=== PATIENT | female | born 1975 | race Caucasian/White ===

== ENCOUNTER 2019-07-07 14:28 | Outpatient (CLI) | payer BC, SELFPAY ==
--- NOTE | ~2019-07-07 | MM_ITS ---
EXAMINATION: MM screening [facility] BI w jory HISTORY: Screening mammogram TECHNIQUE: Craniocaudal and mediolateral oblique 3-D tomosynthesis images were obtained and synthetic 2-D images were generated. CAD analysis was submitted and interpreted. COMPARISON: 06/30/2018, 06/25/2017 BREAST PARENCHYMAL COMPOSITION: The breasts are extremely dense, which lowers the sensitivity of mamm ography. FINDINGS: There is no evidence of suspicious mass, calcification, or architectural distortion to sugg est malignancy in either breast. There has been no suspicious interval change. IMPRESSION: 1. No mammographic evidence of malignancy. 2. Recommend routine screening mammography in one year. BI-RADS Category 1: Negative Reviewed, dictated and finalized at location A.
== END 2019-07-07 14:29 | disposition home or self-care (01) ==
LOC: ANHIMG 14:32
PROVIDERS: PCP Family Medicine; Visit Provider Obstetrics & Gynecology
DX: Z12.31 Encounter for screening mammogram for malignant neoplasm of breast (principal)
CPT/HCPCS: 77063; 77067

== ENCOUNTER 2020-07-13 15:55 | Outpatient (CLI) | payer BC, SELFPAY ==
--- NOTE | ~2020-07-13 | MM_ITS ---
EXAMINATION: MM screening [facility] BI w jory HISTORY: Screening TECHNIQUE: Craniocaudal and mediolateral oblique 3-D tomosynthesis images were obtained and synthetic 2-D images were generated. CAD analysis was submitted and interpreted. COMPARISON: Comparison to multiple prior studies sequentially, with oldest reviewed study dated 06/25. BREAST PARENCHYMAL COMPOSITION: The breasts are extremely dense, which lowers the sensitivity of mamm ography. FINDINGS: There is no evidence of suspicious mass, calcification, or architectural distortion to sugg est malignancy in either breast. There has been no suspicious interval change. IMPRESSION: 1. No mammographic evidence of malignancy. 2. Recommend routine screening mammography in one year. BI-RADS Category 1: Negative Reviewed, dictated and finalized at location A.
== END 2020-07-13 15:56 | disposition home or self-care (01) ==
LOC: ANHIMG 15:58
PROVIDERS: PCP Family Medicine; Visit Provider Obstetrics & Gynecology
DX: Z12.31 Encounter for screening mammogram for malignant neoplasm of breast (principal)
CPT/HCPCS: 77063; 77067

== ENCOUNTER 2021-08-08 14:23 | Outpatient (CLI) | payer BC, SELFPAY ==
--- NOTE | ~2021-08-08 | MM_ITS ---
EXAMINATION: MM screening [facility] BI w jory HISTORY: Screening mammogram TECHNIQUE: Craniocaudal and mediolateral oblique 3-D tomosynthesis images were obtained and synthetic 2-D images were generated. CAD analysis was submitted and interpreted. COMPARISON: 07/13/2020, 07/04/2019, 06/2018 bilateral screening mammogram examinations BREAST PARENCHYMAL COMPOSITION: The breasts are extremely dense, which lowers the sensitivity of mamm ography. FINDINGS: There is no evidence of suspicious mass, calcification, or architectural distortion to sugg est malignancy in either breast. There has been no suspicious interval change. IMPRESSION: 1. No mammographic evidence of malignancy. 2. Recommend routine screening mammography in one year. BI-RADS Category 1: Negative Reviewed, dictated and finalized at location A.
== END 2021-08-08 14:24 | disposition home or self-care (01) ==
LOC: ANHIMG 14:24
PROVIDERS: PCP Family Medicine; Visit Provider Obstetrics & Gynecology
DX: Z12.31 Encounter for screening mammogram for malignant neoplasm of breast (principal)
CPT/HCPCS: 77063; 77067

== ENCOUNTER 2022-07-13 14:49 | Emergency (ER) | payer BC, SELFPAY ==
--- NOTE | ~2022-07-13 | XR_ITS ---
XR foot LT min 3V 07/13/2022 15:11 Indication: Left foot pain after trauma. Procedure: 4 views left foot Comparison: No prior studies for comparison. Findings: There are surgical changes consistent with hallux valgus repair. There is a nondisplaced ob lique fracture of the third proximal phalanx which is extra-articular. Osteopenia. Small degenerative calcaneal enthesophyte. Lisfranc joint is intact. Impression: 1: Nondisplaced extra-articular fracture left third proximal phalanx. Reviewed, dictated and finalized at location A. Impression: 1: Nondisplaced extra-articular fracture left third proximal phalanx.
--- NOTE | 2022-07-13 14:51 | ED.LOWEXIN ---
HPI - Extremity Injury (Lower) General Chief Complaint: Extremity Injury, Lower Stated Complaint: injury to left foot Time Seen by Provider: 07/13/22 14:57 Source: patient, RN notes reviewed and old records reviewed Mode of arrival: ambulatory Limitations: no limitations History of Present Illness HPI Narrative: 47-year-old female presents to the [facility] with pain, bruising over metatarsals to 3 and 4 distal aspect left foot. Patient states that on Saturday, 3 days ago her and her son were both lifting there feet at the same time and her son bumped her foot. Positive pedal pulse. Able to move toes. Sensation intact in all 5 toes. Capillary refill under 2 seconds Onset (ago): day(s) (3) Related Data Home Medications Medication Instructions Recorded Confirmed No Home Medications 07/13/22 07/13/22 Allergies Allergy/AdvReac Type Severity Reaction Status Date / Time Penicillins Allergy Severe Swelling Verified 07/13/22 15:00 of Lip/Tongue/Throat Review of Systems Review of Systems: All systems reviewed & are unremarkable except as noted in HPI and below Constitutional: Constitutional: Reports no additional constitutional complaints Eyes: Eyes: Reports no additional eye complaints ENT: Reports system reviewed and no additional complaints, except as documented Cardiovascular: Cardiovascular: Reports no additional cardiovascular complaints, Denies chest pain and Denies dyspnea Respiratory: Respiratory: Reports no additional respiratory complaints, Denies chest congestion, Denies cough and Denies dyspnea Gastrointestinal: Gastrointestinal: Reports no additional gastrointestinal complaints, Denies abdominal pain, Denies nausea and Denies vomiting Musculoskeletal: Musculoskeletal: Reports as per HPI Integumentary/Breasts: Skin/Breast: Reports system reviewed and no additional complaints, except as docu Neurologic: Reports system reviewed and no additional complaints, except as documented Psychiatric: Psychiatric: Reports no additional psychiatric complaints Allergic/Immunologic: Allergic/Immunologic: Reports no additional allergic/immunologic complaints [facility] Past Medical History Medical History Abnormal bone density screening (03/29/17) osteopenia Abnormal Pap smear of cervix ascus 06/15/2016 wnl + hpv/ 06/18/2017 +hpv; 06/24/2018 Ascus +hpv; 07/12/2020 LGSIL + hpv Anxiety Depression Encounter for IUD insertion 07/30/16 Mirena removal/reinsertion 08/2011 Mirena insertion Encounter for IUD removal 07/30/16 Mirena removal/reinsertion 03/03/18 Mirena removal HPV in female Surgical History Surgical History History of bilateral salpingectomy (08/04/10) hscope d&c/endometrial ablation/lscope bilateral salpingectomy History of bunionectomy (04/05/17) History of 10/10/1996 12/10/2005 12/07/2010 History of colposcopy with cervical biopsy 02/18/13 benign 06/27/18 LGSIL MOE I; ECC-benign History of dilation and curettage (08/04/10) hscope d&c/endometrial ablation/lscope bilateral salpingectomy History of endometrial ablation (08/04/10) hscope d&c/endometrial ablation/lscope bilateral salpingectomy Family History Family History Father Hypertension Family history of elevated blood lipids Heart disease Mother Hypertension Depression Family history of elevated blood lipids Sibling Asthma Grandparent Hypertension maternal grandfather paternal grandfather Diabetes mellitus paternal grandfather Other Cerebrovascular accident Family history of alcoholism Family history of cardiovascular disease Family history of malignant neoplasm Social History Social History Smoking status: Never smoker Alcohol intake: never Sub
[2022-07-13 14:57] VITALS: BP 113/67; PULSE 64; RESP 18; TEMP 35.9; O2SAT 99
== END 2022-07-13 15:35 | disposition home or self-care (01) ==
PROVIDERS: Emergency Provider Nurse Practitioner; PCP Family Medicine
DX: S92.525A Nondisplaced fracture of middle phalanx of left lesser toe(s), initial encounter for closed fracture (principal); W50.0XXA Accidental hit or strike by another person, initial encounter
CPT/HCPCS: 73630; 99214; G0463

== ENCOUNTER 2022-12-03 15:20 | Outpatient (CLI) | payer BC, SELFPAY ==
--- NOTE | ~2022-12-03 | MM_ITS ---
EXAMINATION: MM screening [facility] BI w jory HISTORY: Screening mammogram TECHNIQUE: Craniocaudal and mediolateral oblique 3-D tomosynthesis images were obtained and synthetic 2-D images were generated. CAD analysis was submitted and interpreted. COMPARISON: 08/08/2021, 07/13/2020, 07/07/2019 BREAST PARENCHYMAL COMPOSITION: The breasts are extremely dense, which lowers the sensitivity of mamm ography. FINDINGS: No suspicious mass, calcification, or architectural distortion are identified in either jozef ast to suggest malignancy. There has been no suspicious interval change. IMPRESSION: 1. No mammographic evidence of malignancy. 2. Recommend routine screening mammography in one year. BI-RADS Category 1: Negative Reviewed, dictated and finalized at location A.
== END 2022-12-03 15:21 | disposition home or self-care (01) ==
LOC: ANHIMG 15:45
PROVIDERS: PCP Family Medicine; Visit Provider Obstetrics & Gynecology
DX: Z12.31 Encounter for screening mammogram for malignant neoplasm of breast (principal)
CPT/HCPCS: 77063; 77067

== ENCOUNTER 2023-07-14 18:11 | Emergency (ER) | payer BC, SELFPAY ==
--- NOTE | ~2023-07-14 | XR_ITS ---
EXAMINATION: XR chest 2V Exam Date/Time: 07/14/2023 18:38 CDT HISTORY: chest pain Comparison: 09/29/2009. RESULT: Lines, tubes, and devices: None. Lungs and pleura: Clear. Cardiomediastinal silhouette: Stable. Other: No acute osseous or upper abdominal finding. IMPRESSION: No acute cardiopulmonary process. Reviewed, dictated and finalized at location K.
--- NOTE | ~2023-07-14 | CT_ITS ---
EXAMINATION: CTA chest PE protocol DATE: 07/14/2023 19:31 INDICATION: pe TECHNIQUE: Computed tomography angiography (CTA) of the chest was performed with 100 mL Omnipaque-350 intravenous contrast timed to evaluate the pulmonary arteries. Coronal maximum intensity projection 3D-reconstructions were created by the technologist. The dose-length product (DLP) was 162.85 mGy-cm. Automated exposure control and iterative reconstruction technique were employed. COMPARISON: X-ray chest, same date. FINDINGS: Lung parenchyma and airways: Clear. Pleura: Unremarkable. Thoracic inlet, axillae and chest wall: 1 cm left thyroid nodule, which requires no additional evalua tion at this time. Thoracic aorta: No significant dilation. No dissection. Mediastinum: Normal. Heart and pericardium: Normal. Coronary artery calcifications: Absent. Upper abdomen: No significant finding. Bones: No acute osseous finding. Pulmonary arteries: Study quality: Adequate. No pulmonary emboli detected. IMPRESSION: No CT evidence of acute pulmonary embolus. No acute process detected in the chest. Reviewed, dictated and finalized at location K.
--- NOTE | 2023-07-14 18:12 | ECG_ITS ---
Measurements Intervals Kimball Rate: 75 P: 52 MD: 126 QRS: -2 QRSD: 93 T: 27 QT: 368 QTc: 413 Interpretive Statements SINUS RHYTHM NORMAL ECG NO PREVIOUS ECG AVAILABLE FOR COMPARISON Electronically Signed On 07-14-2023 19:32:40 CDT by Cosme King D.O.
--- NOTE | 2023-07-14 18:14 | ED.CHESTPAIN ---
HPI - Chest Pain General Chief Complaint: Chest Pain Stated Complaint: Sick for 1 week, New Chest pain Time Seen by Provider: 07/14/23 18:14 History of Present Illness HPI narrative: Patient is a 48 year old female with history of paroxysmal SVT, here with chest pain and flu like symptoms. Patient notes that she first developed a sore throat and general malaise and hot flashes. She has progressed throughout the week to also develop nasal congestion and a cough. She has experienced left sided chest pain for about 3 days, it was initially intermittent, became constant about 3 hours ago. The chest pain is non radiating, no associated diaphoresis or nausea. No history of CAD, no cardiac risk factors. Chest pain is not worsened with coughing or deep breaths. No calf pain. No history of PE or DVT. She has also had multiple episodes of diarrhea today. Related Data Allergies Allergy/AdvReac Type Severity Reaction Status Date / Time Penicillins Allergy Severe Swelling Verified 07/14/23 18:27 of Lip/Tongue/Throat Review of Systems Review of Systems: All systems reviewed & are unremarkable except as noted in HPI and below PMFSH Past Medical History Medical History Abnormal bone density screening (03/29/17) osteopenia Abnormal Pap smear of cervix ascus 06/15/2016 wnl + hpv/ 06/18/2017 +hpv; 06/24/2018 Ascus +hpv; 07/12/2020 LGSIL + hpv Anxiety Depression Encounter for IUD insertion 07/30/16 Mirena removal/reinsertion 08/2011 Mirena insertion Encounter for IUD removal 07/30/16 Mirena removal/reinsertion 03/03/18 Mirena removal HPV in female Screening mammogram, encounter for Surgical History Surgical History History of bilateral salpingectomy (08/04/10) hscope d&c/endometrial ablation/lscope bilateral salpingectomy History of bunionectomy (04/05/17) History of 10/10/1996 12/10/2005 12/07/2010 History of colposcopy with cervical biopsy 02/18/13 benign 06/27/18 LGSIL MEO I; ECC-benign History of dilation and curettage (08/04/10) hscope d&c/endometrial ablation/lscope bilateral salpingectomy History of endometrial ablation (08/04/10) hscope d&c/endometrial ablation/lscope bilateral salpingectomy Family History Family History Father Hypertension Family history of elevated blood lipids Heart disease Mother Hypertension Depression Family history of elevated blood lipids Sibling Asthma Grandparent Hypertension maternal grandfather paternal grandfather Diabetes mellitus paternal grandfather Other Cerebrovascular accident Family history of alcoholism Family history of cardiovascular disease Family history of malignant neoplasm Social History Social History (Updated 04/09/23 @ 15:41 by GIL Interiano) Smoking status: Never smoker Second hand tobacco smoke exposure: No Alcohol intake: never Substance use: never Substance use type: does not use Lack of Transportation: No Lack of Food: Never True Current Housing: I Have Housing Concerned About Future Housing: No Difficulty Paying Gas/Electric Bills: No Difficulty Paying for Meds: No Currently Unemployed: No Education: Trade/Vocational Certificate Difficulty w/ Childcare or Family Care: No Living arrangements: other Additional living arrangements comments: Occupation/Education: occupation Additional occupation/education comments: manager agency Gender identity (if verbalized by the patient): Female Sexual Orientation (if Verbalized by the Patient): Straight or Heterosexual Exam Narrative: GENERAL: Well-appearing, well-nourished, and in no acute distress. HEAD: Normocephalic, atraumatic. EYES: PERRLA and EOMI. ENT: Nares clear. Mucous membranes moist. NECK: Supple. CHEST: Clear to
[2023-07-14 18:16] VITALS: BP 145/100; PULSE 89; RESP 18; TEMP 36.9; O2SAT 100
[2023-07-14 18:25] VITALS: PULSE 84; O2SAT 100
[2023-07-14 18:31] LABS: Basophils Percent Auto 0.4 % (0.2-1.2); Eosinophils Absolute Auto 0.3 K/mm3 (0-0.3); Eosinophils Percent Auto 4.3 % (0-4.4); Hematocrit 37.8 % (37.0-47.0); Hemoglobin 12.7 g/dL (12.0-15.0); Immature Granulocyte Absolute 0.01 K/mm3 (0.00-0.031); Immature Granulocyte Percent A 0.1 % (0-0.5); Lymphocytes Absolute Auto 0.99 K/mm3 (0.9-3.2); Lymphocytes Percent Auto 13.7 % (18.3-44.2); Mean Corpuscular HGB Conc 33.6 g/dl (32-36); Mean Corpuscular Hemoglobin 30.8 pg (26-34); Mean Corpuscular Volume 91.5 fl (80-100); Mean Platelet Volume 9.3 fl (7.4-10.4); Monocytes Absolute Auto 0.7 K/mm3 (0.1-0.6); Monocytes Percent Auto 9.3 % (2.6-8.5); Neutrophils Absolute Auto 5.2 K/mm3 (1.3-6.7); Neutrophils Percent Auto 72.2 % (45.5-73.1); Platelet Count Result 189 k/mm3 (150-375); Red Blood Count 4.13 M/mm3 (4.2-5.4); Red Cell Distribution Width 11.7 % (11.5-14.5); White Blood Count 7.2 K/mm3 (4.5-10.0)
[2023-07-14 18:42] LABS: Partial Thromboplastin Time 29.8 Seconds (22.3-36.8)
[2023-07-14 18:45] LABS: Alanine Aminotransferase 15 U/L (6-35); Albumin Level 4.2 g/dL (3.5-5.1); Alkaline Phosphatase 54 U/L (38-126); Anion Gap 6 mmol/L (8-16); Aspartate Amino Transferase 22 U/L (14-36); Bilirubin,Total 0.7 mg/dL (0.2-1.3); Blood Urea Nitrogen 8 mg/dL (7-17); Calcium 9.4 mg/dL (8.4-10.2); Carbon Dioxide 28 mmol/L (22-30); Chloride 107 mmol/L (98-107); Estimated CRCL calculation 92 ml/min; Estimated Glomerular Filt Rate > 60; Glucose 114 mg/dL (65-110); Lipase 66 U/L (23-300); Potassium 4.5 mmol/L (3.4-5.0); Sodium 141 mmol/L (137-145)
[2023-07-14] MEDS: ACETAMINOPHEN 500 MG TABLET 1000 MG PO (18:49)
[2023-07-14] MEDS: LACTATED RINGERS 1,000 ML 999 ML IV CONT (18:50)
[2023-07-14 18:51] VITALS: BP 115/75; PULSE 78; RESP 16; O2SAT 100
[2023-07-14 18:56] LABS: D Dimer 6.93 ug/mL (<0.48)
[2023-07-14 18:57] LABS: Troponin I < 0.012 ng/mL (0.000-0.034)
[2023-07-14 19:07] LABS: Influenza A QL RT-PCR Negative (Negative); Influenza B QL RT-PCR Negative (Negative); RSV RNA, RT-PCR Negative (Negative); SARS-CoV-2 RNA PCR Negative (Negative)
--- NOTE | 2023-07-14 19:12 | PC.NURSE ---
Assumed care of pt at this time.
== END 2023-07-14 20:16 | disposition home or self-care (01) ==
PROVIDERS: Emergency Medicine; Emergency Provider Student in an Organized Health Care Education/Training Program; PCP Family Medicine
DX: R07.89 Other chest pain (principal); B34.9 Viral infection, unspecified; Z20.822 Contact with and (suspected) exposure to COVID-19; Z90.79 Acquired absence of other genital organ(s)
CPT/HCPCS: 36415; 71046; 71275; 80053; 83690; 84484; 85025; 85380; 85610; 85730; 87637; 93005; 96360; 99284; A9270; J7120; Q9967

== ENCOUNTER 2024-01-02 14:21 | Outpatient (CLI) | payer BC, SELFPAY | END 2024-01-02 14:22 | disposition home or self-care (01) | LOC: ANHAUDIO 14:22 | PROVIDERS: PCP Family Medicine; Visit Provider Otolaryngology | DX: H90.6 Mixed conductive and sensorineural hearing loss, bilateral (principal) | CPT/HCPCS: 92552; 92556; 92567 ==

== ENCOUNTER 2024-12-17 10:15 | Outpatient (CLI) | payer BC, SELFPAY ==
--- NOTE | ~2024-12-17 | XR_ITS ---
XR thoracic spine 3V 12/17/2024 10:30 Indication: Back pain Procedure: 3 views thoracic spine Comparison: CT dated 07/14/2023 Findings: There is mild superior endplate compression fracture of T7 which is new compared with prior CT, although age-indeterminate. No paraspinal soft tissue abnormality. No other fractures. Pedicles intact. Impression: 1: Age-indeterminate T7 superior endplate compression fracture with approximately 10% loss of vertebral body height. Consider correlation with CT or MRI of the thoracic spine. Reviewed, dictated and finalized at location O. Impression: 1: Age-indeterminate T7 superior endplate compression fracture with approximate ly 10% loss of vertebral body height. Consider correlation with CT or MRI of th e thoracic spine.
== END 2024-12-17 10:16 | disposition home or self-care (01) ==
LOC: MICIMG 10:16
PROVIDERS: PCP Family Medicine; Visit Provider Physician Assistant Medical
DX: S22.060A Wedge compression fracture of T7-T8 vertebra, initial encounter for closed fracture (principal); X58.XXXA Exposure to other specified factors, initial encounter
CPT/HCPCS: 72072

== ENCOUNTER 2025-01-06 15:31 | Outpatient (CLI) | payer BC, SELFPAY ==
--- NOTE | ~2025-01-06 | CT_ITS ---
EXAMINATION: CT thoracic spine wo con COMPARISON: None HISTORY: S22.060A - Wedge compression fracture of T7-T8 vertebra, ... TECHNIQUE: Axial images were obtained through the spine without IV contrast. Coronal, sagittal reconstruction images were obtained from the axial views. CT scan performed using dose optimization techniques including the following automated exposure control; adjustment of mA and/or kV; use of iterative reconstruction technique. Automatic exposure control was used to reduce radiation dose. Permanent radiation dose record is archived to PACS. FINDINGS: There are healing superior endplate fractures of T5 and T7 with loss of height 20% and no retropulsion. No additional fracture or subluxation identified. Minimal loss of disc height throughout.There is no severe canal or foraminal stenosis identified. Soft tissues unremarkable. Impression: Superior endplate fractures detailed above Reviewed, dictated and finalized at location A. Impression: Superior endplate fractures detailed above
== END 2025-01-06 15:32 | disposition home or self-care (01) ==
LOC: GOSHIMG 15:31
PROVIDERS: PCP Family Medicine; Visit Provider Physician Assistant Medical
DX: S22.060A Wedge compression fracture of T7-T8 vertebra, initial encounter for closed fracture (principal); X58.XXXA Exposure to other specified factors, initial encounter
CPT/HCPCS: 72128

== ENCOUNTER 2025-03-01 08:21 | Outpatient (CLI) | payer OTHER, SELFPAY ==
--- NOTE | ~2025-03-01 | DEXA_ITS ---
Bone Density Report Name: MIKE JARRETT Age: 50 Sex: Female Ethnicity: White Date of : 1975 Indication: height loss; prior fracture; Referring Provider: CRISTIAN BURNS Study: Bone densitometry was performed. Exam Date: March 01, 2025 Accession number: [id number] Bone Density: Region BMD T-score Z-score Classification AP Spine(L1-L4) 0.848 -1.8 -1.2 Osteopenia Femoral Neck (Left) 0.586 -2.4 -1.8 Osteopenia Total Hip (Left) 0.734 -1.7 -1.3 Osteopenia Femoral Neck (Right) 0.587 -2.4 -1.8 Osteopenia Total Hip (Right) 0.802 -1.1 -0.8 Osteopenia Total Hip Mean 0.768 -1.4 -1.1 Osteopenia World Health Organization criteria for BMD impression classify patients as: Normal (T-score at or above -1.0), Osteopenia (T-score between -1.0 and -2.5), or Osteoporosis (T-score at or below -2.5). 10-year Fracture Risk: FRAX not reported because: Premenopausal woman Prior hip or vertebral fracture Previous Exams: -- Region Exam Age BMD T-score BMD Change BMD Change Date g/cm2 vs Baseline vs Previous -- AP Spine (L1-L4) 03/01/2025 50 0.848 -1.8 -9.4%* -9.4%* 04/02/2017 42 0.936 -1.0 Total Hip(Left) 03/01/2025 50 0.734 -1.7 -14.1%* -14.1%* 04/02/2017 42 0.854 -0.7 Total Hip(Right) 03/01/2025 50 0.802 -1.1 -9.9%* -9.9%* 04/02/2017 42 0.890 -0.4 -- *Denotes significance at 95% confidence level, LSC for AP Spine = 0.022 g/cm2, LSC for Total Hip = 0.027 g/cm2 Clinical Information Provided by Patient: Have had a previous hip or vertebral fracture Has had a low trauma fracture Has used the following medications: HRT (i.e. estrogen/hormone therapy), Vitamin D Patient maximum height was 66 Drinks caffeinated beverages Onset of menses at age 19 Premenopausal Number of children 3 Missed period for more than 6 months in a row Impression: The patient's bone mass is within expected range for age, gender and ethnicity. The patient has risk factors, including: previous fracture. The BMD for the AP Spine (L1-L4) decreased, changing by -9.4% since the last DXA exam. The BMD for the Total Hip(Left) decreased, changing by -14.1% since the last DXA exam. The BMD for the Total Hip(Right) decreased, changing by -9.9% since the last DXA exam. Discussion: BONE DENSITY IS WITHIN EXPECTED LIMITS FOR AGE, SEX AND RACE. HISTORY OF FRACTURE. Although there is a predictable association between low bone mass and the risk of osteoporotic fractures in untreated postmenopausal women, there are no data relating bone density and fracture risk in younger women. The ISCD position is that the diagnosis of ?low bone mass? or ?osteoporosis? should not be made on densitometric criteria alone. WHO criteria only apply to postmenopausal women. Further evaluation should be considered given the patient's history of fracture at a young age. The patient should follow a healthful lifestyle (good nutrition with adequate calcium and vitamin D, and appropriate weight-bearing exercise). Follow-Up: Consider a repeat BMD and Vertebral Fracture Assessment (VFA) exam in 2 years or sooner if medically necessary, to reassess this patient's status. Reported by: ARIA on 03/01/2025 9:04:00 AM. Reviewed, dictated and finalized at location A.
== END 2025-03-01 08:22 | disposition home or self-care (01) ==
PROVIDERS: PCP Family Medicine; Visit Provider Physician Assistant Medical
DX: M48.54XA Collapsed vertebra, not elsewhere classified, thoracic region, initial encounter for fracture (principal); M85.88 Other specified disorders of bone density and structure, other site; M85.852 Other specified disorders of bone density and structure, left thigh; M85.851 Other specified disorders of bone density and structure, right thigh
CPT/HCPCS: 77080